=== PATIENT | male | born 1980 | race Caucasian/White ===

== ENCOUNTER → 2021-05-05 | Outpatient (CLI) | payer BC, OTHER ==
[~2021-05-05] VITALS: Ht 177.8 cm; Wt 97.5 kg
[~2021-05-05] MED LIST: BACLOFEN 10MG T10 MG PO; LYRICA150 MG PO; TRAMADOL 50 MG50 MG PO
[2021-05-05 13:55] VITALS: BP 123/89
--- NOTE | 2021-05-05 14:25 | NUR ---
Pain Clinic Assessment: 1. History of Osteoarthritis: Not Applicable History of Rheumatoid Arthritis: Not Applicable 2. Height: 5 ft. 10 in. 177.8 cm. Weight: 215.0 lb. oz. 97.524 kg. Patient's BMI: 30.8 3. Vital Signs: BP: 123/89 Pulse: 92 Resp: 16 Temp: 02 Sat: 96 ECG Mon: 4. Pain Intensity: 8 W/O MEDS 5. Fall Risk: Dizziness: N Needs help standing or walking: N Fallen in the last 3 months: N Fall risk comments: 6. Patient on Blood Thinner: None 7. History of Hypertension: N 8. Opioid Therapy greater than 6 weeks: N Opiate Contract Signed: 9. Risk Assessment Tool Provided: LOW 10. Functional Assessment Tool: 53/70 11. Recreational Drug Use: Never Drug Type: Tobacco Use: Never Smoker Tobacco Type: Amount or Packs/day: How Many Years: Alcohol Use: Yes Frequency: Special Occasions Quant: 1-2
--- NOTE | 2021-05-06 07:55 | HPC ---
[facility] [place] [address] PAIN MANAGEMENT CONSULTATION Name: AZEEM LEE Room #: REG Aliza SolNeelaAdelaide.#: [id number] Admission: 05/05/21 Attend Phys: Steven Gerardo DO Discharge: Date of : 78 Report #: [id number] THIS REPORT FOR: cc: MAMTA LOPEZ Physician not on staff Steven Gerardo DO ~ cc: Alice Stewart NP DATE OF SERVICE: 05/05/2021 CHIEF COMPLAINT: Low back pain, right lower extremity pain with paresthesias. HISTORY OF PRESENT ILLNESS: As you know, the patient is a very pleasant 40-year-old male who has an extensive history of chronic back pain issues. The patient states pain began in 2017 when he had to undergo surgery to address L4-L5 and L5-S1 disk bulges and subsequent lumbar radiculopathy. He states that after the surgery, he was doing very well. He had full resolution of symptoms. He states that his pain reoccurred while doing yard work one day. This led ultimately to a spinal cord stimulator trial and then ultimately implantation of the device. This relieved the symptoms to a great degree. He states he was doing well until the Tuesday before Thanksgiving this 03/2021 where he was moving a significant amount of oxygen in his garage that led to increasing back pain that initially occurred while lifting. He was found to have L5-S1 disk issues on recent imaging. He has trialled Medrol Dosepak without relief. He was given tramadol for which he is taking up to 3 tablets at a time to obtain some analgesic benefit. He has pain that begins in low back, buttock area, radiates to the calf. He describes the pain as neuropathic in origin based on his descriptors. He sought evaluation through his Neurosurgery team who advised the patient to trial conservative options as there did not appear to be any new surgical options based on the MRI results. The patient was subsequently referred to our clinic to discuss interventional treatment options and epidural injections specifically. The patient reports his pain reoccurred after moving the boxes, the Tuesday04/05/2021. He describes the pain as more of a continuous, steady and constant sensation. He describes the pain as burning, shooting, throbbing, numbness and tingling. He places current pain score at 10/10, daily average anywhere from 8-10/10. Worst pain has been is 10/10. The patient states the pain is exacerbated is exacerbated with lack of medications and bending the lumbar spine, improves with medications provided through his Neurosurgery team. He has been referred to our service to discuss interventional treatment options to address lumbar radiculopathy. PAST MEDICAL HISTORY: 1. Chronic lumbar radicular pain. 2. Vitamin D deficiency. 3. Vitamin B12 deficiency. [facility] [address] [place] [address] PAIN MANAGEMENT CONSULTATION Name: AZEEM LEE Room #: REG CLAliza Newsome#: [id number] Admission: 05/05/21 Attend Phys: Steven Gerardo DO Discharge: Date of : 78 Report #: [id number] 4. Testosterone deficiency. PAST SURGICAL HISTORY: 1. Vasectomy. 2. Thoracic laminectomy with paddle lead placement. 3. Right L4-L5, L5-S1 laminectomy with microdiskectomy. 4. Oral surgery. SOCIAL HISTORY: The patient reports he is a nonsmoker. He denies IV or illicit drug use. Admits to an occasional alcohol beverage. He is employed as a christian education director, working, not receiving workmen's compensation nor is he trying to obtain disability benefits. He is not in litigation in regards to pain. He is unaccompanied at today's visit. REVIEW OF SYSTEMS: Positive for wearing corrective eyewear, sexual difficulty, low back pain, right lower extremity pain with paresthesias. All other review of systems negative per 12-point review of systems other than those listed in history of present illness. Pain impact score is 53/70, severe interference of daily activities secondary to pain. ALLERGIES: No reported drug allergies. CURRENT MEDICATIONS: Tramadol 50 mg 3 tabs q. 6 hours p.r.n., pregabalin 150 mg b.i.d., baclofen 10 mg t.i.d. p.r.n. IMAGING: MRI lumbar spine obtained on 04/29/2021 shows, T12-L1, L1-L2 and L2-L3 unremarkable. L3-L4 shows small disk bulge, mild facet arthropathy. No significant central canal or neural foraminal stenosis. L4-L5 shows disk protrusion extending inferiorly, postoperative narrowing, subarticular recess narrowing, right greater than left. Slight abutment of the descending L5 nerve root. Mild right neural foraminal narrowing. L5-S1 shows disk bulge with central disk extrusion extending inferiorly, similar compared to study. Central annular fissure, no canal narrowing, subarticular recess narrowing and abutment of the descending S1 nerve roots are noted. Mild bilateral facet arthropathy, mild neural foraminal narrowing. PHYSICAL EXAMINATION: VITAL SIGNS: Blood pressure 123/89, pulse 92, respiratory rate 16 and unlabored. The patient is 96% on room air. Height 5 feet 10 inches tall, weight 215 pounds, BMI calculated 30.8. GENERAL: Well-developed, well-nourished, well-hydrated 40-year-old male, appearing stated age. He is in mild distress secondary to pain, placing current pain score at 8/10-10/10 depending on activity. HEENT: Normocephalic, atraumatic. Pupils are equal, round and responsive. He is wearing a mask in compliance with COVID-19 regulations and hospital policies. LUNGS: Appear clear. No wheezes, rhonchi or rales are appreciable. [facility] [address] [place] [address] PAIN MANAGEMENT CONSULTATION Name: AZEEM LEE Room #: REG [facility]..#: [id number] Admission: 05/05/21 Attend Phys: Steven Gerardo DO Discharge: Date of : 78 Report #: [id number] CARDIOVASCULAR: Regular. No appreciable gallop, no rub. ABDOMEN: Soft, nontender. EXTREMITIES: Show no clubbing, no cyanosis and no edema. MUSCULOSKELETAL: The patient is able to ambulate, but shows an antalgic gait favoring right lower extremity over left. There is palpatory tenderness noted over the paraspinal musculature of the lower lumbar spine. No spinous process tenderness. Seated straight leg raising is positive on the right. Supine straight leg raising positive on the right. Fabere's test is negative. Modified Gaenslen's positive for axial low back pain. Muscle bulk and tone is equal and symmetrical in lower extremities bilaterally. Muscle strength is weakened with dorsiflexion, plantarflexion, and inversion of the right foot and ankle when compared to left. Sensory testing is unremarkable. Deep tendon reflexes appear symmetrical at the patella, 0/4 on the Achilles on the right, 2+/4 Achilles left. ASSESSMENT: 1. Lumbar radiculopathy. 2. Displacement of lumbar intervertebral disk with radiculopathy. 3. Subarticular recess stenosis. 4. Lumbosacral spondylosis with radiculopathy. 5. Chronic intractable pain. PLAN: 1. Based on today's physical exam and the history the patient has provided, the description the patient uses in regards to pain as well as location of symptoms, likely source of the patient's symptoms is radicular in origin. It would appear the patient is suffering from the findings at the L5-S1 level consistent with his distribution of pain today, radiating down from the buttock area to the posterior thigh and into the calf. The patient and I discussed that the findings of his MRI are consistent at the L5-S1 level with his physical exam. We then discussed the treatment options we have available. Following was discussed with the patient today. We discussed physical therapy, stretching exercises and core strengthening as a treatment approach. We discussed medication management with suggestions of treatment to increased neuropathic medication and possibly even add a second neuropathic treatment option including amitriptyline, nortriptyline, or Cymbalta. We discussed lumbar epidural injection under fluoroscopic guidance for which the patient was referred to our clinic. We also discussed adjustments in his spinal cord stimulator as a treatment course and ultimately surgical decompression. After reviewing risks and benefits of all proposed treatment options, the patient chose to undergo lumbar epidural injection under fluoroscopic guidance. 2. The patient has been advised due to third libertarian payer restrictions, authorization would have to be obtained before the patient could undergo the requested lumbar epidural injection. Authorization could take up to [address] [address] PAIN MANAGEMENT CONSULTATION Name: AZEEM LEE Room #: REG MATEUS Newsome#: [id number] Admission: 05/05/21 Attend Phys: Steven Gerardo DO Discharge: Date of : 78 Report #: [id number] We will have the patient return tomorrow morning to undergo the lumbar epidural injection requested. The patient is agreeable with this plan. 3. No medication changes made at today's visit. The patient will continue current medical therapy as prior prescribed. 4. We plan to see the patient back in followup visit tomorrow morning to undergo lumbar epidural injection under fluoroscopic guidance to address lumbar radicular symptoms involving the right lower extremity. 5. We wish to thank nurse practitioner, Alice Stewart for the opportunity to see this patient in consultation. We will keep you apprised of the response, the patient has to the requested lumbar epidural injection. Again, we wish to thank you for the opportunity to see the patient in consultation. <ELECTRONICALLY SIGNED> By: Steven Gerardo DO 05/06/21 0755 [id number] Steven Gerardo DO /nt
== END ==
LOC: PAIN 10:50
PROVIDERS: ATTEND Anesthesiology Pain Medicine
DX: M51.16 Intervertebral disc disorders with radiculopathy, lumbar region (principal); M47.27 Other spondylosis with radiculopathy, lumbosacral region; G89.29 Other chronic pain; M79.661 Pain in right lower leg; Z79.899 Other long term (current) drug therapy

== ENCOUNTER → 2021-05-06 | Outpatient (CLI) | payer BC, OTHER ==
[~2021-05-06] VITALS: Ht 177.8 cm; Wt 97.5 kg
[2021-05-06 07:42] VITALS: BP 153/103
--- NOTE | 2021-05-06 07:45 | NUR ---
Pain Clinic Assessment: 1. History of Osteoarthritis: Not Applicable History of Rheumatoid Arthritis: Not Applicable 2. Height: 5 ft. 10 in. 177.8 cm. Weight: 215.0 lb. oz. 97.524 kg. Patient's BMI: 30.8 3. Vital Signs: BP: 153/103 Pulse: 104 Resp: 16 Temp: 02 Sat: 97 ECG Mon: 4. Pain Intensity: 4 5. Fall Risk: Dizziness: N Needs help standing or walking: N Fallen in the last 3 months: N Fall risk comments: 6. Patient on Blood Thinner: None 7. History of Hypertension: N 8. Opioid Therapy greater than 6 weeks: N Opiate Contract Signed: 9. Risk Assessment Tool Provided: LOW 10. Functional Assessment Tool: 53/70 11. Recreational Drug Use: Never Drug Type: Tobacco Use: Never Smoker Tobacco Type: Amount or Packs/day: How Many Years: Alcohol Use: Yes Frequency: Quant:
--- NOTE | 2021-05-12 12:13 | HPC ---
[facility] [place] [address] PAIN MANAGEMENT CONSULTATION Name: AZEEM LEE Room #: REG Aliza Mercedez#: [id number] Admission: 05/06/21 Attend Phys: Steven Gerardo DO Discharge: Date of : 78 Report #: [id number] THIS REPORT FOR: cc: MAMTA LOPEZ Physician not on staff Steven Gerardo DO ~ cc: Alice Stewart DATE OF SERVICE: 05/06/2021 CHIEF COMPLAINT: Low back pain, right lower extremity pain with paresthesias. HISTORY OF PRESENT ILLNESS: As you know, the patient is a very pleasant 40-year-old male seen in consultation yesterday afternoon for lumbar radiculopathy involving the low back and right lower extremity. The patient states that he has had an extensive history of back issues, starting in 2018, where he underwent right L4-L5, L5-S1 microdiscectomies and decompressive laminectomies. He states his pain was doing great, but the symptoms reoccurred leading to a spinal cord stimulator implant, which again resolved the patient's symptoms. He was doing well until the Tuesday before 2020 where he was moving boxes around in his garage and this led to instantaneous development of back pain. He trialed conservative treatment, but did not see improvement. He sought evaluation through his Neurosurgery team who advised the patient to trial more conservative options as there were no findings in the recent imaging study that would be considered surgical. He was referred on to our clinic. We saw the patient yesterday, diagnosed with lumbar radiculopathy and provided today's appointment to undergo the first in a series of lumbar epidural injections. He returns today in followup visit stating pain today at around 4/10. States his pain is constant, shooting, throbbing in sensation, exacerbated by bending, standing and improved with stretching and medications. He has been referred to our clinic to undergo epidural injection under fluoroscopic guidance. ALLERGIES: No known drug allergies. CURRENT MEDICATIONS: Tramadol, pregabalin, baclofen. SOCIAL HISTORY: The patient denies tobacco use. Denies IV or illicit drug use. Admits to occasional alcohol beverage. He is employed as a chief executive or managing director. He is working, not receiving workmen's compensation, unaccompanied today. IMAGING: No new imaging available. PHYSICAL EXAMINATION: VITAL SIGNS: Blood pressure 153/103, pulse 104, respiratory rate 16 and unlabored. The patient is 97% on room air. Height 5 feet 10 inches tall, [facility] [address] [place] [address] PAIN MANAGEMENT CONSULTATION Name: AZEEM LEE Room #: REG [facility].#: [id number] Admission: 05/06/21 Attend Phys: Steven Gerardo DO Discharge: Date of : 78 Report #: [id number] weight 215 pounds, BMI calculated 30.8. GENERAL: Well-developed, well-nourished, well-hydrated 40-year-old male appearing stated age, pain is rated today at around 4/10. HEENT: Normocephalic, atraumatic. Pupils are round. He is wearing a mask in compliance with COVID-19 regulations. EXTREMITIES: Show no clubbing, no cyanosis. No appreciable edema. MUSCULOSKELETAL: Lower extremity strength is equal and symmetrical 5/5, though there is giveaway strength noted with hip flexion due to pain today. Seated straight leg raising is positive on the right. Supine straight leg raising positive on the right. Claudio's test is negative. ASSESSMENT: 1. Symptomatic lumbar radiculopathy. 2. Displacement of lumbar intervertebral disk with radiculopathy. 3. Subarticular recess stenosis. 4. Lumbosacral spondylosis with radiculopathy. 5. Chronic intractable pain. PLAN: 1. The patient returns today in followup visit to undergo lumbar epidural injection under fluoroscopic guidance to address lumbar radicular symptoms. The patient has been advised risks and benefits of the procedure. These risks include but are not necessarily limited to bleeding, bruising, infection, worsening pain, no relief of pain, also risk of temporary or permanent muscle weakness, temporary or permanent nerve damage, possible paralysis, post-dural puncture headache and . The patient states understood and wished to proceed. 2. No medication changes made at today's visit. The patient will continue current medical therapy as prior prescribed. 3. Plan to see the patient back in followup visit in 32 days. At that time, review the efficacy of today's lumbar epidural injection to determine next in the series of epidural injections would be recommended. PROCEDURE NOTE DESCRIPTION OF PROCEDURE: L5-S1 right parasagittal epidural steroid injection under fluoroscopic guidance. This is the first procedure of the first series that the patient is undergoing. After obtaining written consent, the patient was taken back to the fluoroscopy suite, placed in a prone position with pillow under the abdomen to decrease lumbar lordosis. The skin overlying the lumbosacral area was then prepped and draped in aseptic fashion. The L5-S1 vertebral interspace was then identified by AP fluoroscopy. The skin and subcutaneous tissue overlying the target site of injection was anesthetized with 3 mL 1% lidocaine. [address] [address] PAIN MANAGEMENT CONSULTATION Name: AZEEM LEE Room #: REG MATEUS Newsome#: [id number] Admission: 05/06/21 Attend Phys: Steven Gerardo DO Discharge: Date of : 78 Report #: [id number] A 20 gauge 3-1/2 inch Tuohy needle was then advanced under fluoroscopic guidance towards the epidural space using a right parasagittal approach. The epidural space was identified using loss of resistance to air technique. After negative aspiration for heme or cerebrospinal fluid, a total of 1 mL of Omnipaque was injected. A lumbar epidurogram was confirmed using both AP and lateral fluoroscopy. After negative aspiration for heme or cerebrospinal fluid, 5 mL of a solution containing 2 mL 40 mg per mL 80 mg total triamcinolone along with 3 mL of lidocaine 1% was injected in increments. Contrast spread was noted in the postepidural space. The needle was then retracted approximately half way and needle tract flushed with 1 mL of 1% lidocaine. Needle was then removed. There were no apparent sensory or motor deficits in the lower extremity following the procedure. A sterile bandage was placed over the injection site. The heart rate, pulse, oximetry and blood pressure were continuously monitored after the procedure. There were no apparent complications. The patient tolerated the procedure well and was carefully escorted to the recovery room in stable condition. There were no apparent complications. After meeting discharge criteria, the patient was then discharged home. <ELECTRONICALLY SIGNED> By: Steven Gerardo DO 05/12/21 1213 [id number] Steven Gerardo DO /zachariah
== END | disposition home or self-care (01) ==
LOC: PAIN 06:49
PROVIDERS: ATTEND Anesthesiology Pain Medicine
DX: M51.16 Intervertebral disc disorders with radiculopathy, lumbar region (principal); M47.27 Other spondylosis with radiculopathy, lumbosacral region; G89.29 Other chronic pain; Z98.890 Other specified postprocedural states; Z79.899 Other long term (current) drug therapy

== ENCOUNTER → 2021-06-09 | Outpatient (CLI) | payer BC, OTHER ==
[~2021-06-09] VITALS: Ht 177.8 cm; Wt 101.1 kg
--- NOTE | 2021-06-09 08:46 | NUR ---
Pain Clinic Assessment: 1. History of Osteoarthritis: Not Applicable History of Rheumatoid Arthritis: Not Applicable 2. Height: ft. in. cm. Weight: lb. oz. kg. Patient's BMI: 3. Vital Signs: BP: Pulse: Resp: Temp: 02 Sat: ECG Mon: 4. Pain Intensity: 2 5. Fall Risk: Dizziness: N Needs help standing or walking: N Fallen in the last 3 months: N Fall risk comments: 6. Patient on Blood Thinner: None 7. History of Hypertension: N 8. Opioid Therapy greater than 6 weeks: N Opiate Contract Signed: 9. Risk Assessment Tool Provided: LOW 10. Functional Assessment Tool: 53/70 11. Recreational Drug Use: Never Drug Type: Tobacco Use: Never Smoker Tobacco Type: Amount or Packs/day: How Many Years: Alcohol Use: Yes Frequency: Special Occasions Quant: 1
[2021-06-09 09:19] VITALS: BP 143/93
--- NOTE | 2021-06-10 08:15 | HPC ---
[facility] [place] [address] PAIN MANAGEMENT CONSULTATION Name: AZEEM LEE Room #: REG MATEUS OneydaAdelaideNeela#: [id number] Admission: 06/09/21 Attend Phys: Steven Gerardo DO Discharge: Date of : 78 Report #: [id number] THIS REPORT FOR: cc: MAMTA LOPEZ Physician not on staff Steven Gerardo DO ~ cc: Dr. Chamorro DATE OF SERVICE: 06/09/2021 REFERRING PHYSICIAN: Dr. Chamorro CHIEF COMPLAINT: Low back pain, right lower extremity pain with paresthesias. HISTORY OF PRESENT ILLNESS: As you know, the patient is a very pleasant 40-year-old male seen in consultation for lumbar radiculopathy for low back pain, right lower extremity pain with paresthesias. He has had extensive history of back issues, starting in 2018 where he underwent microdiskectomies and decompressive laminectomies. Unfortunately, symptoms reoccurred. The patient was referred on to our clinic to trial conservative treatment. After MRI findings showed changes consistent with his symptomatology at the lower lumbar levels. The patient has undergone 1 lumbar epidural injection under fluoroscopic guidance dated 05/06/2021. He reports with that injection, he received 60% improvement in overall pain, which is ongoing. He is very pleased with response to treatment. He returns today in followup visit to undergo the second in the series of epidural injections to address his residual 2/10 pain. The patient indicates pain is chronic in nature. Describing the pain is constant, shooting, throbbing, numbness and tingling, exacerbated with bending and standing, improves with stretching his legs out, medications and the previous lumbar epidural injections. Very pleased with response to the first injection. Returning today to undergo next in the series. Pain begins in low back, radiates down the right buttock to the right calf consistent with a lumbar radiculopathy, he was experiencing prior. ALLERGIES: No known drug allergies. CURRENT MEDICATIONS: Baclofen 10 mg t.i.d., pregabalin 150 mg b.i.d., tramadol 50 mg every 6 hours p.r.n. pain. SOCIAL HISTORY: The patient denies tobacco use. Denies IV or illicit drug use. Admits occasional alcohol beverage. 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 He is working, not receiving workmen's compensation, unaccompanied today. IMAGING: No new imaging available. PHYSICAL EXAMINATION: [address] [place] [address] PAIN MANAGEMENT CONSULTATION Name: AZEEM LEE Room #: REG CLAliza Mercedez#: [id number] Admission: 06/09/21 Attend Phys: Steven Gerardo DO Discharge: Date of : 78 Report #: [id number] VITAL SIGNS: Blood pressure 143/93, pulse 97, respiratory rate 16 and unlabored. The patient 98% on room air. GENERAL: Well-developed, well-nourished, well-hydrated 40-year-old male appearing stated age, pain is rated today around 2/10. HEENT: Normocephalic, atraumatic. Pupils equal, round and responsive. He is wearing a mask in compliance with COVID-19 regulations. EXTREMITIES: Show no clubbing, no cyanosis, no edema. MUSCULOSKELETAL: Lower extremity strength equal and symmetrical 5/5. There is no giveaway strength noted today. Seated straight leg raising is positive on the right. Supine straight leg raising positive on right. Gait appears normal. Muscle bulk and tone is equal and symmetrical in lower extremities. ASSESSMENT: 1. Symptomatic lumbar radiculopathy. 2. Displacement of lumbar intervertebral disk with radiculopathy. 3. Subarticular recess stenosis. 4. Lumbosacral spondylosis with radiculopathy. 5. Chronic intractable pain. PLAN: 1. The patient returns today in followup visit requesting to undergo the next in the series of lumbar epidural injections. He is very pleased with response to the previous injections noticing 60% improvement in overall pain, which is ongoing. He is now placing pain score 2/10. He returns to undergo the second in the series of epidural injections in hopes of building on success of previous intervention. The patient has been advised the risks and benefits of the procedure, states understood and wished to proceed. 2. No medication changes made at today's visit. The patient will continue current medical therapy as prior prescribed. 3. We will see the patient back in followup visit on an as needed basis for the next in the series of lumbar epidural injections. I am hopeful the patient will once again see good and prolonged benefit with the injection provided today. We will see him back p.r.n. PROCEDURE NOTE. DESCRIPTION OF PROCEDURE: L5-S1 parasagittal epidural steroid injection under fluoroscopic guidance. This is the second procedure of the first series that the patient is undergoing. After obtaining written consent, the patient was taken back to the fluoroscopy suite, placed in a prone position with pillow under the abdomen to decrease lumbar lordosis. The skin overlying the lumbosacral area was then prepped and draped in aseptic fashion. The L5-S1 vertebral interspace was then identified by AP fluoroscopy. The skin and subcutaneous tissue overlying the target site [address] [address] PAIN MANAGEMENT CONSULTATION Name: AZEEM LEE Room #: REG [facility]#: [id number] Admission: 06/09/21 Attend Phys: Steven Gerardo DO Discharge: Date of : 78 Report #: [id number] of injection was anesthetized with 3 mL 1% lidocaine. A 20 gauge 3-1/2 inch Tuohy needle was then advanced under fluoroscopic guidance towards the epidural space using a parasagittal approach. The epidural space was identified using loss of resistance to air technique. After negative aspiration for heme or cerebrospinal fluid, a total of 1 mL of Omnipaque was injected. A lumbar epidurogram was confirmed using both AP and lateral fluoroscopy. After negative aspiration for heme or cerebrospinal fluid, 5 mL of a solution containing 2 mL 40 mg per mL 80 mg total triamcinolone along with 3 mL of lidocaine 1% was injected in increments. Contrast spread was noted in the post epidural space. The needle was then retracted approximately half way and needle tract flushed with 1 mL of 1% lidocaine. Needle was then removed. There were no apparent sensory or motor deficits in the lower extremity following the procedure. A sterile bandage was placed over the injection site. The heart rate, pulse, oximetry and blood pressure were continuously monitored after the procedure. There were no apparent complications. The patient tolerated the procedure well and was carefully escorted to the recovery room in stable condition. There were no apparent complications. After meeting discharge criteria, the patient was then discharged home. <ELECTRONICALLY SIGNED> By: Steven Gerardo DO 06/10/21814 09 Steven Gerardo DO /[email or web address]
== END | disposition home or self-care (01) ==
LOC: PAIN 07:28
PROVIDERS: ATTEND Anesthesiology Pain Medicine
DX: M51.16 Intervertebral disc disorders with radiculopathy, lumbar region (principal); M48.061 Spinal stenosis, lumbar region without neurogenic claudication; M47.27 Other spondylosis with radiculopathy, lumbosacral region; G89.29 Other chronic pain; Z98.890 Other specified postprocedural states; Z79.899 Other long term (current) drug therapy